=== PATIENT | male | born 1995 | race Two or more races ===

== ENCOUNTER 2021-07-19 08:50 | Emergency (ER) | payer MEDICAID ==
[~2021-07-19] VITALS: Ht 172.7 cm; Wt 80.0 kg
[2021-07-19] MEDS ORDERED: PREDNISONE 20MG TABLET PO STA (09:15)
[2021-07-19] MEDS ORDERED: IPRATROPIUM BROMIDE (0.02%) 0.5MG/2.5ML NEB HHN STA (09:15)
[2021-07-19] MEDS ORDERED: ALBUTEROL (0.083%) 2.5MG/3ML NEB HHN STA (09:15)
[2021-07-19] MEDS ORDERED: P50 MT (10:14)
[2021-07-19] MEDS ORDERED: ALBU90AE INH (10:14)
[2021-07-19 10:42] VITALS: BP 117/78
== END 2021-07-19 10:44 | disposition home or self-care (01) ==
LOC: ER 09:07
DX: J45.901 Unspecified asthma with (acute) exacerbation (principal); Z20.822 Contact with and (suspected) exposure to COVID-19; Z79.899 Other long term (current) drug therapy
CPT/HCPCS: 93005; 94640; 99284; C9803; J7512; U0003; U0005; Z7610